=== PATIENT | male | born 1965 | race Caucasian/White ===

== ENCOUNTER 2018-12-02 21:26 | Emergency (ER) | payer OTHER ==
[2018-12-02 21:50] VITALS: BP 121/70; TEMP 98.5
[2018-12-02] MEDS ORDERED: IBUPROFEN 600 MG TAB PO STA (23:47)
[2018-12-03 00:29] VITALS: PULSE 82; RESP 20
--- NOTE | 2018-12-03 01:12 | US ---
EXAMINATION TYPE: US venous doppler duplex LE RT DATE OF EXAM: 12/03/2018 12:56 AM COMPARISON: NONE CLINICAL HISTORY: right popliteal pain. Right popliteal intermittent pain x 1 year. No HX of DVT. Pt not on blood thinners. Swelling right leg. SIDE PERFORMED: Right TECHNIQUE: The lower extremity deep venous system is examined utilizing real time linear array sonog carson with graded compression, doppler sonography and color-flow sonography. VESSELS IMAGED: External Iliac Vein (EIV) Common Femoral Vein Deep Femoral Vein Greater Saphenous Vein * Femoral Vein Popliteal Vein Small Saphenous Vein * Proximal Calf Veins (* superficial vessels) Right Leg: No evidence of DVT in veins imaged from distal popliteal vein to EIV. Limited evaluation of prox calf veins. IMPRESSION: No evidence of deep venous thrombosis in the right leg.
--- NOTE | 2018-12-03 01:49 | ED ---
General Adult HPI - General Chief complaint: Extremity Problem,Nontraumatic Stated complaint: bilateral leg swelling Time Seen by Provider: 12/02/18 23:24 Source: patient, RN notes reviewed, old records reviewed Mode of arrival: ambulatory Limitations: no limitations - History of Present Illness Initial comments: 53-year-old male patient. See chief complaint of right lower extremity pain and swelling. Patient worse they does take Lasix for lower extremity edema. Reports that he does have some bilateral leg swelling. Patient reports is worse in his right lower extremity also pain behind his right knee. Patient has a chest pain shortness of breath. Denies any other complaints at this time. Systemic: Pt denies fatigue, fever/chills, rash. Pt denies weakness, night sweats, weight loss. Neuro: Pt denies headache, visual disturbances, syncope or pre-syncope. HEENT: Pt denies ocular discharge or irritation, otalgia, rhinorrhea, pharyngitis or notable lymphadenopathy. Cardiopulmonary: Pt denies chest pain, SOB, heart palpitations, dyspnea on exertion. Abdominal/GI: Pt denies abdominal pain, n/v/d. : Pt denies dysuria, burning w/ urination, frequency/urgency. Denies new onset urinary or bowel incontinence. MSK: Pt denies myalgia, loss of strength or function in extremities. Neuro: Pt denies new onset weakness, paresthesias. - Related Data Allergies Allergy/AdvReac Type Severity Reaction Status Date / Time No Known Allergies Allergy Verified 12/02/18 21:50 Review of Systems ROS Statement: Those systems with pertinent positive or pertinent negative responses have been documented in the HPI. ROS Other: All systems not noted in ROS Statement are negative. Past Medical History Past Medical History: Heart Failure, GERD/Reflux, Hypertension History of Any Multi-Drug Resistant Organisms: None Reported Past Surgical History: Hernia Repair Past Psychological History: No Psychological Hx Reported Smoking Status: Current every day smoker Past Alcohol Use History: Abuse, Daily, Heavy Past Drug Use History: None Reported General Exam - General Exam Comments Initial Comments: Constitutional: NAD, AOX3, Pt has pleasant affect. HEENT: NC/AT, trachea midline, neck supple, no lymphadenopathy. Posterior pharynx non erythematous, without exudates. External ears appear normal, without discharge. Mucous membranes moist. Eyes PERRLA, EOM intact. There is no scleral icterus. No pallor noted. Cardiopulmonary: RRR, no murmurs, rubs or gallops, no JVD noted. Lungs CTAB in anterior and posterior thorpe. No +1 peripheral edema. Abdominal exam: Abdomen soft and non-distended. Abdomen non-tender to palpation in all 4 quadrants. Bowel sounds active in LLQ. No hepatosplenomegaly. No ecchymosis Neuro: CN II-XII grossly intact. No nuchal rigidity. No raccon eyes, no perales sign, no hemotympanum. No cervical spinal tenderness. MSK: Right posterior popliteal region mildly tender to palpation. No unilateral leg swelling. Homans sign negative. Distal pulses intact and equal. No posterior calf tenderness bilaterally, homans sign negative bilaterally. Posterior tibialis and radial pulse +2 bilaterally. Sensation intact in upper and lower extremities. Full active ROM in upper and lower extremities, 5/5 stregnth. Limitations: no limitations Course Vital Signs 12/02/18 12/03/18 21:44 00:28 Temperature 98.5 F Pulse Rate 100 82 Respiratory 18 20 Rate Blood Pressure 121/70 121/70 O2 Sat by Pulse 97 95 Oximetry Medical Decision Making - Medical Decision Making 53-year-old male patient presents to ED for chief complaint evaluation of pain behind right knee. Patient also reports that he has +1 peripheral edema bilaterally. Patient does take Lasix. Physical exam displayed a pop to region mildly tender to palpation. Ultrasound right lower extremity displayed no sign of DVT. Patient discharged outpatient follow-up. Patient will continue Lasix. Patient will be advised to elevate feet, wear IVET hose. Return to ER if condition worsens. Case discussed with Dr. Banegas. Disposition Clinical Impression: Arthralgia Disposition: HOME SELF-CARE Condition: Stable Instructions (If sedation given, give patient instructions): Musculoskeletal Pain (ED) Additional Instructions: Patient to adhere to previously discussed treatment plan and will take medication(s) as directed. Patient to follow up with PCP in 1-2 days. Patient to return to ED if symptoms do not improve. Follow up with PRIMARY care provider, return to ER if condition worsens. Is patient prescribed a controlled substance at d/c from ED?: No Referrals: Nonstaff,Physician [Primary Care Provider] - 1-2 days
== END 2018-12-03 02:22 | disposition home or self-care (01) ==
LOC: EC 21:26
DX: M25.561 Pain in right knee (principal); M79.89 Other specified soft tissue disorders; R07.9 Chest pain, unspecified; R06.02 Shortness of breath; F17.200 Nicotine dependence, unspecified, uncomplicated; Z86.79 Personal history of other diseases of the circulatory system
CPT/HCPCS: 99284